=== PATIENT | male | born 1970 | race African-American/Black ===

== ENCOUNTER 2022-05-21 13:05 | Emergency (ER) | payer MEDICAID, OTHER ==
[~2022-05-21] VITALS: Ht 180.3 cm; Wt 74.0 kg
[2022-05-21 13:34] VITALS: BP 139/93
[2022-05-21] MEDS ORDERED: KETOROLAC 30MG/ML VIAL IM ONE (16:00)
[2022-05-21] MEDS ORDERED: LIDO1ADH71 TOP (16:52)
== END 2022-05-21 17:12 | disposition home or self-care (01) ==
LOC: ER 13:05
DX: M54.16 Radiculopathy, lumbar region (principal); M54.30 Sciatica, unspecified side; F32.A Depression, unspecified
CPT/HCPCS: 96372; 99283; J1885

== ENCOUNTER 2025-03-29 12:25 | Emergency (ER) | payer MEDICAID, OTHER ==
[~2025-03-29] VITALS: Ht 180.3 cm; Wt 72.0 kg
[~2025-03-29 12:25] MED LIST: LIDO1ADH71 TOP
[2025-03-29 12:31] VITALS: O2SAT 99
[2025-03-29] MEDS ORDERED: HYDR453.3 TP (13:52)
[2025-03-29] MEDS ORDERED: BO1 TP (13:52)
[2025-03-29] MEDS ORDERED: CEPH250C2 MT (13:56)
[2025-03-29 14:20] VITALS: BP 134/94; PULSE 88; RESP 18; TEMP 36.7; O2SAT 99
== END 2025-03-29 14:21 | disposition home or self-care (01) ==
LOC: ER 12:36
DX: R21 Rash and other nonspecific skin eruption (principal); M19.90 Unspecified osteoarthritis, unspecified site; M54.30 Sciatica, unspecified side; Z79.899 Other long term (current) drug therapy; Z98.890 Other specified postprocedural states
CPT/HCPCS: 99283